=== PATIENT | male | born 1960 | race Hispanic/Latino ===

== ENCOUNTER 2020-04-16 16:11 | Inpatient (IN) | payer BC, SELFPAY ==
[2020-04-16] VITALS (20 sets, daily range): BP systolic 160–179; BP diastolic 82–94; PULSE 73–82; RESP 16–18; TEMP 37–37.2; O2SAT 93–99; BMI 29.0
--- NOTE | ~2020-04-16 | CT_ITS ---
EXAMINATION: CT abdomen pelvis wo con DATE: 04/16/2020 18:36 INDICATION: Abdominal pain. Pancreatitis. TECHNIQUE: Computed tomography (CT) of the abdomen and pelvis was performed without intravenous contr ast. Automated exposure control and iterative reconstruction technique were employed. Exam dose: 480 .97 mGy-cm total exam DLP. COMPARISON: None. FINDINGS: There is bibasilar lower lobe atelectasis. There is atelectasis at the base of the lingula. Normal he art size. No pericardial or pleural effusion. Diffuse hepatic steatosis. No hepatic, splenic or pancreatic space-occupying mass lesion is evident. There is high density bile within the gallbladder. No gallbladder wall thickening or pericholecystic fluid or stranding. There is peripancreatic fat stranding involving the body and tail of the pancreas, consistent with cl inical diagnosis of pancreatitis. There is associated thickening of the left anterior pararenal fasci a. No renal mass lesion. No urinary tract calculus or hydroureteronephrosis. The urinary bladder is unre markable. There is prostate enlargement and calcification. No intraluminal mass lesion of the urinary bladder i s evident. Normal caliber of the abdominal aorta. No intraperitoneal or retroperitoneal or pelvic mass lesion or adenopathy or ascites. Normal appendix. There is mild colonic diverticulosis. No CT evidence of diverticulitis. No bowel obstruction, pneumat osis or intraperitoneal free air. There is a fat-containing umbilical hernia. There is moderately prominent degenerative disc disease at L5-S1. No suspicious osteolytic or osteoblastic lesions are noted. IMPRESSION: Diffuse hepatic steatosis Mild pancreatitis Prostate enlargement and calcification Mild colonic diverticulosis Reviewed, dictated and finalized at [facility]. Reviewed, dictated and finalized at [facility]. UNICATIONS EQUIPMENT OPERATOR
--- NOTE | ~2020-04-16 | US_ITS ---
EXAMINATION: US right upper quadrant DATE: 04/17/2020 14:30 INDICATION: Acute pancreatitis. Abnormal liver function tests. TECHNIQUE: Multiple grayscale and Doppler ultrasound images of the abdomen were obtained. COMPARISON: CT abdomen and pelvis 04/16/2020 FINDINGS: The visualized portions of the head of the pancreas is normal. There is diffuse hepatic sushila atosis. There is normal flow in main portal vein. The gallbladder is normal in size. No gallstones or gallbladder wall thickening. There was no sonographic Cabral sign. The common duct is normal and chepe sures 3 mm. The spleen is normal in size. IMPRESSION: 1. Diffuse hepatic steatosis. Reviewed, dictated and finalized at [facility]. OP ADMIN
[2020-04-16 16:51] LABS: Basophils Percent Auto 0.3 % (0.2-1.2); Eosinophils Percent Auto 0.3 % (0-4.4); Hematocrit 40.7 % (42.0-52.0); Hemoglobin 14.7 g/dL (14.0-18.0); Immature Granulocyte Absolute 0.08 K/mm3 (0.00-0.031); Immature Granulocyte Percent A 0.5 % (0-0.5); Lymphocytes Absolute Auto 1.39 K/mm3 (0.9-3.2); Lymphocytes Percent Auto 8.8 % (18.3-44.2); Mean Corpuscular HGB Conc 36.1 g/dl (32-36); Mean Corpuscular Hemoglobin 32.7 pg (26-34); Mean Corpuscular Volume 90.4 fl (80-100); Mean Platelet Volume 10.2 fl (7.4-10.4); Monocytes Percent Auto 6.6 % (2.6-8.5); Neutrophils Absolute Auto 13.3 K/mm3 (1.3-6.7); Neutrophils Percent Auto 83.5 % (45.5-73.1); Platelet Count Result 234 k/mm3 (150-375); Red Cell Distribution Width 11.8 % (11.5-14.5); White Blood Count 15.9 K/mm3 (4.5-10.0)
[2020-04-16 17:01] LABS: Add Urine Microscopic? YES; Appearance Urine Clear (Clear); Bilirubin Urine Negative (Negative); Blood Urine Negative (Negative); Color Urine Yellow (Yellow); Glucose Urine UA Negative (Negative); Ketones Urine Negative (Negative); Leukocyte Esterase Ur Negative LEU/UL (Negative); Mucus Urine Rare /lpf; Nitrate Urine Negative (Negative); Protein Urine 1+ mg/dL (Negative); RBC Urine 0-2 /hpf (0-2); Specific Grav Ur 1.021 (1.001-1.035); Squamous Epithelial Cell Urine Rare /hpf (Few); Urobilinogen Urine Negative mg/dL (<2.0); WBC Urine 0-3 /hpf
[2020-04-16 17:04] LABS: Alanine Aminotransferase 39 U/L (4-50); Albumin Level 4.2 g/dL (3.5-5.1); Alkaline Phosphatase 101 U/L (38-126); Anion Gap 9 mmol/L (8-16); Aspartate Amino Transferase 40 U/L (17-59); Bilirubin,Total 0.9 mg/dL (0.2-1.3); Blood Urea Nitrogen 9 mg/dL (9-20); Calcium 9.2 mg/dL (8.4-10.2); Carbon Dioxide 25 mmol/L (22-30); Chloride 100 mmol/L (98-107); Estimated CRCL calculation 83 ml/min; Estimated Glomerular Filt Rate > 60; Glucose 110 mg/dL (75-110); Sodium 134 mmol/L (137-145)
[2020-04-16 17:17] LABS: Lipase 7680 U/L (23-300)
[2020-04-16] MEDS: FAMOTIDINE 20 MG/2 ML VIAL IV PUSH ×2 (17:42→23:27)
[2020-04-16] MEDS: ONDANSETRON INJ 4 MG/2 ML VIAL IV PUSH ×2 (17:42→21:52)
[2020-04-16] MEDS: SODIUM CHLORIDE 0.9% IV 1,000 ML 999 ML IV CONT (17:42)
[2020-04-16] MEDS: HYDROmorphone HCL INJ (*CRX) 1 MG/ML SYR IV PUSH (17:42)
--- NOTE | 2020-04-16 19:19 | PC.NURSE ---
PT REPORT TO BERTIN GRAFF AT THIS TIME.
--- NOTE | 2020-04-16 20:06 | ED.ABDPAIN ---
HPI - Abdominal Pain General Chief Complaint: Abdominal Pain Stated Complaint: abd pain since yest/seen at [facility] today Time Seen by Provider: 04/16/20 17:23 History of Present Illness HPI narrative: Patient is a 59-year-old gentleman who presents to emergency department with chief complaint of abdominal pain. The patient reports he has prior history of pancreatitis and states that he was seen at [facility] and diagnosed with constipation earlier today the patient reports this feels similar to whenever he has had episodes of pancreatitis in the past patient reports that he occasionally drinks alcohol. The patient denies history of gallbladder disease. Related Data Home Medications Medication Instructions Recorded Confirmed tramadol 50 mg PO Q4H PRN 04/16/20 Allergies Allergy/AdvReac Type Severity Reaction Status Date / Time No Known Allergies Allergy Unknown Verified 04/16/20 16:37 Review of Systems Review of Systems: Narrative: CONSTITUTIONAL: Denies fever, chills, or sweats. EYES: Denies visual changes, redness, or discharge. ENT: Denies rhinorrhea, congestion, sore throat, or otalgia. CARDIOVASCULAR: Denies chest pain, palpitations, or edema. RESPIRATORY: Denies cough or dyspnea. GASTROINTESTINAL: Denies abdominal pain, nausea, vomiting, or diarrhea. GENITOURINARY: Denies dysuria or hematuria. SKIN: Denies rash or itching. MUSCULOSKELETAL: Denies back pain, joint pain, or myalgia. NEUROLOGIC: Denies headache, numbness, or weakness. PSYCHIATRIC: Denies anxiety or depression. PMFSH Social History Social History Gender identity (if verbalized by the patient): Male Comments Pancreatitis Occasional alcohol consumption Exam Narrative: Exam Narrative: GENERAL: Well-appearing, well-nourished, and in no acute distress. HEAD: Normocephalic, atraumatic. EYES: PERRLA and EOMI. ENT: Nares clear, no rhinorrhea or epistaxis. Mucous membranes moist. NECK: Supple. CHEST: Clear to auscultation. No respiratory distress. HEART: Regular rate and rhythm. No murmur heard. Normal peripheral pulses. ABDOMEN: Soft, clear to palpation in the epigastric region, nondistended, normal active bowel sounds. EXTREMITIES: Normal range of motion. No edema. SKIN: Warm, dry, no rash. NEURO: No focal deficits. Alert and oriented x3. PSYCH: Normal mood and affect. Course Course Emergency Course: CT scan shows evidence of mild pancreatitis lipase is in the 7000 range. The patient's pain was controlled he was hydrated case was discussed with the hospitalist and the patient will be admitted to the hospital Vital Signs Vital signs: Vital Signs Temperature 37.2 C 04/16/20 16:33 Pulse Rate 76 04/16/20 16:33 Respiratory Rate 18 04/16/20 16:33 Blood Pressure 170/85 H 04/16/20 16:33 Pulse Oximetry 98 04/16/20 16:33 Temperature 37.2 C 04/16/20 16:33 Pulse Rate 73 04/16/20 17:33 Respiratory Rate 16 04/16/20 17:33 Blood Pressure 161/94 H 04/16/20 19:01 Pulse Oximetry 98 04/16/20 19:15 MDM - Abdominal Pain Lab Data Result diagrams: 04/16/20 16:45 04/16/20 16:45 Labs: Lab Results 04/16/20 04/16/20 04/16/20 Range/Units 16:45 16:45 16:50 WBC 15.9 H (4.5-10.0) K/mm3 RBC 4.50 L (4.6-6.20) M/mm3 Hgb 14.7 (14.0-18.0) g/dL Hct 40.7 L (42.0-52.0) % MCV 90.4 (80-100) fl MCH 32.7 (26-34) pg MCHC 36.1 H (32-36) g/dl RDW 11.8 (11.5-14.5) % Plt Count 234 (150-375) k/mm3 MPV 10.2 (7.4-10.4) fl Immature Gran % (Auto) 0.5 (0-0.5) % Neut % (Auto) 83.5 H (45.5-73.1) % Lymph % (Auto) 8.8 L (18.3-44.2) % [place] % (Auto) 6.6 (2.6-8.5) % Eos % (Auto) 0.3 (0-4.4) % Baso % (Auto) 0.3 (0.2-1.2) % Lymph # (Auto) 1.39 (0.9-3.2) K/mm3 [place] # (Auto) 1.0 H (0.1-0.6) K/mm3 Eos # (Auto) 0.0 (0-0.3) K/mm3 Baso # (Auto) 0.0 (0.0-0.1) K/mm3 Abs Immat Gran (auto) 0.08 H (0.00-0.031) K/mm3 Absolute N
--- NOTE | 2020-04-16 20:21 | PM.IMHP ---
H&P: HPI History of Present Illness Date/Time: 04/16/20 20:21 Chief complaint: Acute Pancreatitis Narrative: Ilya Ann is a 59 year old male Review of Systems Review of Systems: Narrative: Abdominal pain located to the epigastrium for the last 2 days or so, dry heaving. Constitutional: Comments: No fevers, no rigors, no chills. ENT: Comments: no ear pain, no throat pain, no nasal congestion or discharge. Cardiovascular: Comments: no chest pain, no leg swelling, no orthopnea, no pnd. Respiratory: Comments: no cough, no sputum production. Gastrointestinal: Comments: Epigastric pain for the last 2 days or so, dry heaving, no diarrhea, no constipation, no hematemesis or hematochezia or melena. Genitourinary: Comments: no pain or burning with urination. Musculoskeletal: Comments: no joint pain, no joint swelling. Integumentary/Breasts: Comments: no rashes. Neurologic: Comments: no sensory motor deficit Hematologic/Lymphatic: Comments: no LAP, no petechiae PMFSH Family History Family History (Updated 04/16/20 @ 21:51 by Wolfgang Fajardo RN) Father Cerebrovascular accident Social History Social History Smoking status: Never smoker Alcohol intake: current Substance use: current Substance use type: marijuana Gender identity (if verbalized by the patient): Male Spiritual care concerns: No Meds Home Medications and Allergies Allergies Allergy/AdvReac Type Severity Reaction Status Date / Time No Known Allergies Allergy Unknown Verified 04/16/20 16:37 Vital Signs Vital Signs - 24 hr 04/16/20 16:33 04/16/20 17:30 04/16/20 17:33 Temperature 98.9 F Pulse Rate 76 77 73 Respiratory Rate 18 16 16 Blood Pressure 170/85 H 167/83 H 167/83 H Pulse Oximetry 98 98 99 04/16/20 17:45 04/16/20 18:00 04/16/20 18:01 Temperature Pulse Rate Respiratory Rate Blood Pressure 161/91 H Pulse Oximetry 98 93 95 04/16/20 18:17 04/16/20 18:40 04/16/20 18:45 Temperature Pulse Rate Respiratory Rate Blood Pressure Pulse Oximetry 95 98 96 04/16/20 19:00 04/16/20 19:01 04/16/20 19:15 Temperature Pulse Rate Respiratory Rate Blood Pressure 161/94 H Pulse Oximetry 96 97 98 Exam Narrative: Exam Narrative: Well nourished, well developed, lying in bed. Const: General: cooperative, comfortable, well developed and alert Nutritional Appearance: average body habitus Orientation/consciousness: patient oriented x3 Limitations: no limitations HENMT: Head: normal to inspection and normocephalic Ears: hearing grossly normal bilaterally General nose exam: Normal external nose present Face and sinus: normal facial exam Eyes: General: appearance normal, both eyes and all related structures Conjunctivae: conjunctivae normal Sclera: sclerae normal Cornea: corneas normal Pupils: Equal, round and reactive pupils present EOM: EOMs intact bilaterally Neck: Neck: full ROM, no lymphadenopathy and no JVD Thyroid: thyroid normal Resp: Effort & Inspection: normal respiratory effort Auscultation: clear to auscultation bilaterally Cardio: Jugular venous distension: no JVD Rhythm: regular rhythm Heart sounds: S1 normal heart sound present and S2 normal heart sound present GI: Inspection: normal to inspection GI Palp: Yes abdominal tenderness, Yes Soft to palpation, Yes No hepatosplenomegaly present and Yes Other GI palpation findings present (Tenderness to palpation on the epigastric area, no rebound or guarding.) Percussion: Yes normal to percussion Auscultation: normal bowel sounds Skin: General skin exam: normal color Lesions: no lesions Rashes: no rashes Trauma: no lacerations or abrasions Wounds: no wounds Hair: normal Neuro: General: patient oriented x3 and CN's II-XI intact bilaterally Cranial nerves: Yes CN's II-XII intact bilaterally and Yes Equal, round and reactive pupils present Cognition (Neuro): normal cognition Speech: normal speech Gait exam
[2020-04-16] MEDS: MORPHINE SULFATE (*CRX) 2 MG/ML INJ IV PUSH (21:38)
--- NOTE | 2020-04-16 21:50 | ADMGEN ---
This patient, Ilya Ann, was admitted to [facility] Surg Room 316-01. Patient/family oriented to hospital policies and general routines including ID bracelet, bed and alarms, visiting hours, pain management, procedures, bathroom and other care routines, personal items, smoking policy, room service/diet, and visiting hours. Information on how to activate the Rapid Response Team has been discussed. Patient/Family are encouraged to report perceived risks to care and to ask questions if they do not understand what they are told or what they should do.
[2020-04-16] MEDS: HEPARIN SODIUM 5,000 UNITS/ML VIAL 5000 UNITS SUB-Q (21:52)
[2020-04-16] MEDS: LACTATED RINGERS 1,000 ML 100 ML IV CONT (23:27)
[2020-04-17] MEDS: MORPHINE SULFATE (*CRX) 2 MG/ML INJ IV PUSH ×5 (00:51→20:42)
[2020-04-17 05:29] VITALS: BP 152/78; PULSE 80; RESP 18; TEMP 36.8; O2SAT 94
[2020-04-17 06:57] LABS: Basophils Percent Auto 0.2 % (0.2-1.2); Eosinophils Percent Auto 0.1 % (0-4.4); Hematocrit 40.4 % (42.0-52.0); Hemoglobin 14.4 g/dL (14.0-18.0); Immature Granulocyte Absolute 0.11 K/mm3 (0.00-0.031); Immature Granulocyte Percent A 0.6 % (0-0.5); Lymphocytes Absolute Auto 1.51 K/mm3 (0.9-3.2); Lymphocytes Percent Auto 8.9 % (18.3-44.2); Mean Corpuscular HGB Conc 35.6 g/dl (32-36); Mean Corpuscular Hemoglobin 32.3 pg (26-34); Mean Corpuscular Volume 90.6 fl (80-100); Mean Platelet Volume 10.9 fl (7.4-10.4); Monocytes Absolute Auto 1.4 K/mm3 (0.1-0.6); Monocytes Percent Auto 8.4 % (2.6-8.5); Neutrophils Absolute Auto 13.8 K/mm3 (1.3-6.7); Neutrophils Percent Auto 81.8 % (45.5-73.1); Platelet Count Result 237 k/mm3 (150-375); Red Blood Count 4.46 M/mm3 (4.6-6.20); Red Cell Distribution Width 11.9 % (11.5-14.5); White Blood Count 16.9 K/mm3 (4.5-10.0)
[2020-04-17 07:43] LABS: Anion Gap 10 mmol/L (8-16); Blood Urea Nitrogen 6 mg/dL (9-20); Carbon Dioxide 23 mmol/L (22-30); Chloride 99 mmol/L (98-107); Estimated CRCL calculation 74 ml/min; Estimated Glomerular Filt Rate > 60; Glucose 101 mg/dL (75-110); Magnesium 1.7 mg/dL (1.6-2.3); Phosphorus 3.3 mg/dL (2.5-4.5); Potassium 3.7 mmol/L (3.4-5.0); Sodium 132 mmol/L (137-145)
[2020-04-17] MEDS: HEPARIN SODIUM 5,000 UNITS/ML VIAL 5000 UNITS SUB-Q ×2 (08:12→20:40)
[2020-04-17] MEDS: FAMOTIDINE 20 MG/2 ML VIAL IV PUSH ×2 (08:13→20:40)
[2020-04-17 09:53] LABS: Lipase 1795 U/L (23-300)
--- NOTE | 2020-04-17 11:08 | PM.IMPN ---
Progress Note: A&P Assessment and Plan (1) Acute pancreatitis: Code(s): K85.90 - Acute pancreatitis without necrosis or infection, unspecified Status: Acute Assessment and Plan: Presented with severe diffuse abdominal pain. CT/ a/p showed mild pancreatitis. Etiology unclear at this time. Patient reports occasional alcohol intake. Denies history of gall bladder disease. Lipase 7680 at presentation. Improved to 1795 today. Continue clear liquid diet. Advance as tolerated Check RUQ US Check triglycerides Continue IV fluid rehydration Antiemetics and analgesics as needed Monitor electrolytes and lipase daily (2) Leukocytosis: Code(s): D72.829 - Elevated white blood cell count, unspecified Status: Acute Assessment and Plan: White count 15.9 at admission, likely reactive secondary to pancreatitis. Slight increase today. No fevers or other signs or symptoms of infection. Continue gentle IV fluids and supportive care for pancreatitis as above Monitor CBC with diff daily (3) Hepatic steatosis: Code(s): K76.0 - Fatty (change of) liver, not elsewhere classified Status: Acute Assessment and Plan: CT a/p showed diffuse hepatic steatosis. LFTs are wnl. Dietary and lifestyle modifications recommended Outpatient follow up with PCP (4) Elevated blood pressure reading: Code(s): R03.0 - Elevated blood-pressure reading, without diagnosis of hypertension Status: Acute Assessment and Plan: Blood pressures are reviewed and have been elevated in the 150-170s systolic. May be secondary to pain. He denies a history of HTN. Monitor BP closely Consider addition of antihypertensive if remaining elevated Hydralazine as needed if systolic BP >170 Subjective Date/time seen: 04/17/20 11:08 Interval history: Date of service: 04/17/2020 Ilya Ann is a 59-year-old male who reports a history of one prior episode of pancreatitis 12 years ago who is seen in follow up for acute pancreatitis. He had onset of diffuse abdominal pain 2 days ago while at work. At this time, he reports 10/10 diffuse abdominal pain that he describes as both sharp and aching. It is just a bad pain. Denies radiation to the back. He felt a bit nauseous this morning but denies emesis. He has not eaten anything since yesterday. He has been having regular bowel movements. He denies urinary symptoms. He denies headaches or body aches. No shortness of breath, cough, chest pain, or palpitations. Review of Systems Review of Systems: All systems reviewed & are unremarkable except as noted in HPI and below Exam Narrative: Exam Narrative: Mr. Ann is a well-nourished, mildly ill-appearing 59-year-old male who is lying supine in bed. He is writhing and grimacing, but is in NARD. HR 80, BP 152/78, RR 18, T 98.3?, 94% on room air Neuro: awake, alert and oriented x4, speech clear, no focal neuro deficits noted HEENMT: normocephalic, atraumatic, EOMI, sclerae anicteric, moist oral mucosa, tongue midline, nares patent Neck: supple, no lymphadenopathy Respiratory: clear to auscultation bilaterally, nonlabored breathing Cardio: regular rate, regular rhythm with S1-S2 Abdomen: nondistended, normoactive bowel sounds, soft, diffusely tender to palpation with no rigidity or guarding, no rebound tenderness Extremities: no edema, erythema, cyanosis, clubbing, or tenderness to palpation, DP pulses 2+ bilaterally Skin: no rashes or lesions, warm and dry Psych: appropriate mood and affect, judgment and insight intact Objective Data Vital Signs Vital Signs: Vital Signs - 24 hr 04/16/20 16:33 04/16/20 17:30 04/16/20 17:33 Temperature 98.9 F Pulse Rate 76 77 73 Respiratory Rate 18 16 16 Blood Pressure 170/85 H 167/83 H 167/83 H Pulse Oximetry 98 98 99 04/16/20 17:45 04/16/20 18:00 04/16/20 18:01 Temperature Pulse Rate Respiratory Rate Blood Pressure 161/91 H
[2020-04-17 14:00] VITALS: BP 159/81; PULSE 83; RESP 16; TEMP 36.8; O2SAT 97
[2020-04-17] MEDS: LACTATED RINGERS 1,000 ML 100 ML IV CONT (14:32)
[2020-04-17 15:49] LABS: Triglycerides 514 mg/dL (<150)
[2020-04-17 22:00] VITALS: BP 157/84; PULSE 84; RESP 18; TEMP 36.9; O2SAT 97
[2020-04-18] MEDS: LACTATED RINGERS 1,000 ML 100 ML IV CONT ×2 (00:35→10:21)
[2020-04-18] MEDS: MORPHINE SULFATE (*CRX) 2 MG/ML INJ IV PUSH ×4 (04:48→20:11)
[2020-04-18 06:00] VITALS: BP 161/83; PULSE 84; RESP 18; TEMP 36.8; O2SAT 97
[2020-04-18 06:20] LABS: Hemoglobin 13.7 g/dL (14.0-18.0); Mean Corpuscular HGB Conc 36.1 g/dl (32-36); Mean Corpuscular Hemoglobin 33.1 pg (26-34); Mean Corpuscular Volume 91.8 fl (80-100); Mean Platelet Volume 10.8 fl (7.4-10.4); Platelet Count Result 219 k/mm3 (150-375); Red Blood Count 4.14 M/mm3 (4.6-6.20); Red Cell Distribution Width 12.1 % (11.5-14.5)
[2020-04-18 06:37] LABS: Alanine Aminotransferase 26 U/L (4-50); Albumin Level 3.7 g/dL (3.5-5.1); Alkaline Phosphatase 86 U/L (38-126); Anion Gap 10 mmol/L (8-16); Aspartate Amino Transferase 29 U/L (17-59); Blood Urea Nitrogen 9 mg/dL (9-20); Calcium 9.1 mg/dL (8.4-10.2); Carbon Dioxide 24 mmol/L (22-30); Chloride 96 mmol/L (98-107); Estimated CRCL calculation 74 ml/min; Estimated Glomerular Filt Rate > 60; Glucose 109 mg/dL (75-110); Lipase 548 U/L (23-300); Magnesium 1.9 mg/dL (1.6-2.3); Potassium 3.6 mmol/L (3.4-5.0); Sodium 130 mmol/L (137-145)
[2020-04-18] MEDS: FAMOTIDINE 20 MG/2 ML VIAL IV PUSH ×2 (09:07→20:10)
[2020-04-18] MEDS: HEPARIN SODIUM 5,000 UNITS/ML VIAL 5000 UNITS SUB-Q ×2 (09:07→20:10)
[2020-04-18 14:00] VITALS: BP 152/76; PULSE 91; RESP 18; TEMP 36.8; O2SAT 98
--- NOTE | 2020-04-18 15:27 | PM.IMPN ---
Progress Note: A&P Assessment and Plan (1) Acute pancreatitis: Code(s): K85.90 - Acute pancreatitis without necrosis or infection, unspecified Status: Acute Assessment and Plan: Presented with severe diffuse abdominal pain. CT/ a/p showed mild pancreatitis. Suspect idiopathic etiology. Triglycerides elevated at 514. Patient reports only occasional alcohol intake. No evidence of gallstones on RUQ US. Lipase is improving. Advance to full liquid diet IV fluids discontinued as he is tolerating oral intake Antiemetics and analgesics as needed Monitor electrolytes and lipase daily (2) Leukocytosis: Code(s): D72.829 - Elevated white blood cell count, unspecified Status: Acute Assessment and Plan: White count 15.9 at admission, likely reactive secondary to pancreatitis. Slight increase today. No fevers or other signs or symptoms of systemic infection. No Monitor CBC with diff daily Continue with supportive care treatment for pancreatitis as above. (3) Hepatic steatosis: Code(s): K76.0 - Fatty (change of) liver, not elsewhere classified Status: Acute Assessment and Plan: CT a/p showed diffuse hepatic steatosis. LFTs are wnl. Dietary and lifestyle modifications recommended Outpatient follow up with PCP Check lipid panel (4) Elevated blood pressure reading: Code(s): R03.0 - Elevated blood-pressure reading, without diagnosis of hypertension Status: Acute Assessment and Plan: Blood pressures are reviewed and have been elevated in the 150-170s systolic. May be secondary to pain. He denies a history of HTN. BP evaluated today and slightly elevated at 161/83. Monitor BP closely Consider addition of antihypertensive if remaining elevated Hydralazine as needed if systolic BP >170 Subjective Date/time seen: 04/18/20 15:27 Interval history: Date of service: 04/18/2020 Ilya Ann is a 59-year-old male who reports a history of one prior episode of pancreatitis 12 years ago who is seen in follow up for acute pancreatitis. His pain is improved today. He is currently endorsing 8/10 diffuse abdominal pain but is feeling much more comfortable. No radiation to back or flank. He still has not eaten anything but would like to try clear liquids. He is having a lot of gas and belching, and he thinks some of his pain is related to this. His last BM was several days ago. Denies fever, chills, nausea, vomiting, dizziness, lightheadedness. Denies urinary symptoms. No SOB or cough. Review of Systems Review of Systems: All systems reviewed & are unremarkable except as noted in HPI and below Exam Narrative: Exam Narrative: Mr. Ann is a well-nourished, mildly ill-appearing 59-year-old male who is lying supine in bed. He appears comfortable and is in NARD. HR 84, BP 161/83, R 18, T 98.3?, 97% on room air Neuro: awake, alert and oriented x4, speech clear, no focal neuro deficits noted HEENMT: normocephalic, atraumatic, EOMI, sclerae anicteric, moist oral mucosa, tongue midline, nares patent Neck: supple, no lymphadenopathy Respiratory: clear to auscultation bilaterally, nonlabored breathing Cardio: regular rate, regular rhythm with S1-S2 Abdomen: nondistended, normoactive bowel sounds, soft, mildly tender to palpation with no rigidity or guarding, no rebound tenderness Extremities: no edema, erythema, cyanosis, clubbing, or tenderness to palpation, DP pulses 2+ bilaterally Skin: no rashes or lesions, warm and dry Psych: appropriate mood and affect, judgment and insight intact Objective Data Vital Signs Vital Signs: Vital Signs - 24 hr 04/17/20 22:00 04/18/20 06:00 04/18/20 14:00 Temperature 98.5 F 98.3 F 98.2 F Pulse Rate 84 84 91 Respiratory Rate 18 18 18 Blood Pressure 157/84 H 161/83 H 152/76 H Pulse Oximetry 97 97 98 Intake/Output Intake/Output: Intake & Output 04/15/20 04/16/20 04/17/20 04/18/20 23:59 23:59 23:
[2020-04-18] MEDS: SIMETHICONE 80 MG TAB.CHEW PO ×2 (17:01→20:10)
[2020-04-18 20:40] VITALS: PULSE 78; RESP 16; O2SAT 94
[2020-04-18 22:00] VITALS: BP 152/89; PULSE 78; RESP 16; TEMP 37.1; O2SAT 94
[2020-04-19] MEDS: MORPHINE SULFATE (*CRX) 2 MG/ML INJ IV PUSH (04:54)
[2020-04-19 06:00] VITALS: BP 140/81; PULSE 77; RESP 16; TEMP 37; O2SAT 95
[2020-04-19 06:39] LABS: Hematocrit 38.4 % (42.0-52.0); Hemoglobin 13.6 g/dL (14.0-18.0); Mean Corpuscular HGB Conc 35.4 g/dl (32-36); Mean Corpuscular Hemoglobin 32.3 pg (26-34); Mean Corpuscular Volume 91.2 fl (80-100); Mean Platelet Volume 10.5 fl (7.4-10.4); Platelet Count Result 261 k/mm3 (150-375); Red Blood Count 4.21 M/mm3 (4.6-6.20); Red Cell Distribution Width 11.9 % (11.5-14.5); White Blood Count 14.8 K/mm3 (4.5-10.0)
[2020-04-19 06:54] LABS: Cholesterol 299 mg/dL (0-200); HDL Direct 37 mg/dL; Triglycerides 438 mg/dL (<150)
[2020-04-19 07:04] LABS: LDL Cholesterol Direct 142 mg/dL
[2020-04-19 07:05] LABS: Alanine Aminotransferase 28 U/L (4-50); Albumin Level 3.9 g/dL (3.5-5.1); Alkaline Phosphatase 94 U/L (38-126); Anion Gap 9 mmol/L (8-16); Aspartate Amino Transferase 32 U/L (17-59); Bilirubin,Total 0.8 mg/dL (0.2-1.3); Blood Urea Nitrogen 11 mg/dL (9-20); Carbon Dioxide 27 mmol/L (22-30); Chloride 98 mmol/L (98-107); Estimated CRCL calculation 67 ml/min; Estimated Glomerular Filt Rate > 60; Glucose 123 mg/dL (75-110); Lipase 465 U/L (23-300); Potassium 3.4 mmol/L (3.4-5.0); Sodium 134 mmol/L (137-145)
[2020-04-19] MEDS: HEPARIN SODIUM 5,000 UNITS/ML VIAL 5000 UNITS SUB-Q ×2 (08:25→20:31)
[2020-04-19] MEDS: FAMOTIDINE 20 MG/2 ML VIAL IV PUSH ×2 (08:27→20:26)
[2020-04-19] MEDS: MORPHINE SULFATE (*CRX) 2 MG/ML INJ 1 MG IV PUSH ×2 (08:27→17:18)
[2020-04-19] MEDS: SIMETHICONE 80 MG TAB.CHEW PO ×4 (08:28→20:31)
[2020-04-19 09:01] VITALS: O2SAT 92
[2020-04-19] MEDS: HYDROcodone/acetaminophen (*CRX) 5-325 MG TABLET 1 TAB PO ×2 (12:45→20:22)
[2020-04-19 14:00] VITALS: BP 139/85; PULSE 75; RESP 16; TEMP 36.7; O2SAT 100
--- NOTE | 2020-04-19 15:47 | PM.IMPN ---
Progress Note: A&P Assessment and Plan (1) Acute pancreatitis: Code(s): K85.90 - Acute pancreatitis without necrosis or infection, unspecified Status: Acute Assessment and Plan: Presented with severe diffuse abdominal pain. CT/ a/p showed mild pancreatitis. Suspect idiopathic etiology. Triglycerides are elevated but not markedly so. Patient reports only occasional alcohol intake. No evidence of gallstones on RUQ US. Lipase is improving. Continue full liquid diet. Patient endorsing worsened pain after meals. Advance diet slowly and as tolerated. IV fluids discontinued as he is tolerating oral intake Antiemetics and analgesics as needed Monitor electrolytes and lipase daily (2) Leukocytosis: Code(s): D72.829 - Elevated white blood cell count, unspecified Status: Acute Assessment and Plan: White count 15.9 at admission and increased up to 20.0, likely reactive secondary to pancreatitis. Slowly improving. No fevers or other signs or symptoms of systemic infection. Monitor CBC with diff daily Continue with supportive care treatment for pancreatitis as above. (3) Hepatic steatosis: Code(s): K76.0 - Fatty (change of) liver, not elsewhere classified Status: Acute Assessment and Plan: CT a/p showed diffuse hepatic steatosis. LFTs are wnl. Dietary and lifestyle modifications recommended Outpatient follow up with PCP Check lipid panel (4) Elevated blood pressure reading: Code(s): R03.0 - Elevated blood-pressure reading, without diagnosis of hypertension Status: Acute Assessment and Plan: Blood pressures are reviewed and had been elevated in the 150-170s systolic. May be secondary to pain. He denies a history of HTN. BP is trending downward as pain is improving. BP is 139/85 today. Monitor BP closely Consider addition of antihypertensive if remaining elevated Hydralazine as needed if systolic BP >170 (5) Hyperlipidemia: Code(s): E78.5 - Hyperlipidemia, unspecified Status: Acute Assessment and Plan: total cholesterol and triglycerides are elevated. LDL is borderline high. Initiate moderate intensity statin based on patient's intermediate ASCVD risk score of 14%. Start with 10 mg atorvastatin daily. May be uptitrated to 20 mg based on tolerability. LFTs reviewed and wnl. Subjective Date/time seen: 04/19/20 15:47 Interval history: Date of service: 04/19/2020 Ilya Ann is a 59-year-old male who reports a history of one prior episode of pancreatitis 12 years ago who is seen in follow up for acute pancreatitis. his pain is improving today. He is currently rating 6/10. This morning he was quite comfortable but did experience some pain after eating full liquid breakfast. He denies any nausea or vomiting. He is feeling more comfortable today. He has no additional concerns. Review of Systems Review of Systems: All systems reviewed & are unremarkable except as noted in HPI and below Exam Narrative: Exam Narrative: Mr. Ann is a well-nourished, mildly ill-appearing 59-year-old male who is lying supine in bed. He appears comfortable and is in NARD. HR 77, BP 140/81, RR 16, T 98.6?, 95% on room air Neuro: awake, alert and oriented x4, speech clear, no focal neuro deficits noted HEENMT: normocephalic, atraumatic, EOMI, sclerae anicteric, moist oral mucosa, tongue midline, nares patent Neck: supple, no lymphadenopathy Respiratory: clear to auscultation bilaterally, nonlabored breathing Cardio: regular rate, regular rhythm with S1-S2 Abdomen: nondistended, normoactive bowel sounds, soft, mildly tender to palpation of epigastric region with no rigidity or guarding, no rebound tenderness Extremities: no edema, erythema, cyanosis, clubbing, or tenderness to palpation, DP pulses 2+ bilaterally Skin: no rashes or lesions, warm and dry Psych: appropriate mood and affect, judgment and insight intact
[2020-04-19 22:00] VITALS: BP 143/72; PULSE 72; RESP 20; TEMP 37.2; O2SAT 99
[2020-04-20] MEDS: MORPHINE SULFATE (*CRX) 2 MG/ML INJ 1 MG IV PUSH (01:00)
[2020-04-20 06:00] VITALS: BP 142/82; PULSE 68; RESP 18; TEMP 36.8; O2SAT 97
[2020-04-20] MEDS: HYDROcodone/acetaminophen (*CRX) 5-325 MG TABLET 1 TAB PO (06:11)
[2020-04-20 07:43] LABS: Hematocrit 38.7 % (42.0-52.0); Hemoglobin 13.5 g/dL (14.0-18.0); Mean Corpuscular HGB Conc 34.9 g/dl (32-36); Mean Corpuscular Hemoglobin 32.5 pg (26-34); Mean Platelet Volume 9.9 fl (7.4-10.4); Platelet Count Result 288 k/mm3 (150-375); Red Blood Count 4.16 M/mm3 (4.6-6.20); Red Cell Distribution Width 11.9 % (11.5-14.5)
[2020-04-20 08:00] VITALS: PULSE 68; RESP 18; O2SAT 97
[2020-04-20 08:07] LABS: Anion Gap 6 mmol/L (8-16); Blood Urea Nitrogen 12 mg/dL (9-20); Carbon Dioxide 29 mmol/L (22-30); Chloride 99 mmol/L (98-107); Estimated CRCL calculation 67 ml/min; Estimated Glomerular Filt Rate > 60; Glucose 121 mg/dL (75-110); Lipase 239 U/L (23-300); Potassium 3.7 mmol/L (3.4-5.0); Sodium 134 mmol/L (137-145)
[2020-04-20] MEDS: FAMOTIDINE 20 MG/2 ML VIAL IV PUSH (08:10)
[2020-04-20] MEDS: ATORVASTATIN 10 MG TABLET PO (08:10)
[2020-04-20] MEDS: HEPARIN SODIUM 5,000 UNITS/ML VIAL 5000 UNITS SUB-Q (08:10)
[2020-04-20 14:00] VITALS: BP 141/73; PULSE 75; RESP 18; TEMP 36.5; O2SAT 94
--- NOTE | 2020-04-20 16:53 | PM.DS ---
DS: Admitting Diagnosis Admitting Diagnosis Admitting Diagnosis: Acute Pancreatitis DS: Discharge Diagnosis Discharge Diagnosis (1) Acute pancreatitis: Code(s): K85.90 - Acute pancreatitis without necrosis or infection, unspecified Status: Acute Assessment and Plan: Presented with severe diffuse abdominal pain. CT/ a/p showed mild pancreatitis. Suspect idiopathic etiology. Triglycerides are elevated but not markedly so. Patient reports only occasional alcohol intake. No evidence of gallstones on RUQ US. He was made NPO and hydrated with IV fluids. Lipase normalized. Diet was advanced and he was able to tolerate a low fat diet which he will continue. His pain improved. He had no nausea or vomiting. (2) Leukocytosis: Code(s): D72.829 - Elevated white blood cell count, unspecified Status: Acute Assessment and Plan: Resolved. White count 15.9 at admission and increased up to 20.0. This was reactive secondary to pancreatitis. No fevers or other signs or symptoms of systemic infection. White count normalized and was 9.0 at time of discharge. (3) Hepatic steatosis: Code(s): K76.0 - Fatty (change of) liver, not elsewhere classified Status: Acute Assessment and Plan: CT a/p showed diffuse hepatic steatosis, seen again on RUQ US. LFTs wnl. Dietary and lifestyle modifications recommended. He was referred to production corrugator PCP for further monitoring as an outpatient. (4) Elevated blood pressure reading: Code(s): R03.0 - Elevated blood-pressure reading, without diagnosis of hypertension Status: Acute Assessment and Plan: Blood pressures reviewed closely and had been elevated in the 150-170s systolic initially, likely elevated secondary to pain. He denies a history of HTN. BP trended downward with improvement in pain and was in 130-140s prior to discharge. I will defer initiating an anithypertensive at this time. I recommended patient monitor BP at home 3 times per week and record for review by PCP. Discussed parameters to call if BP is elevated. (5) Hyperlipidemia: Code(s): E78.5 - Hyperlipidemia, unspecified Status: Acute Assessment and Plan: Total cholesterol and triglycerides are elevated. LDL is borderline high. Moderate intensity statin initiated based on patient's intermediate ASCVD risk score of 14%. Started with 10 mg atorvastatin daily. May be uptitrated to 20 mg based on tolerability per PCP. LFTs reviewed and wnl. DS: Summary Hospital Course Reason for hospitalization: acute pancreatitis Hospital Course: date of admission: 04/16/2020 date of discharge: 04/20/2020 Ilya Ann is a 59-year-old male who is not current with routine health screening and reports no significant past medical history with the exception of one prior episode of pancreatitis 12 years ago presented to the emergency department on 04/16/2020 with complaints of abdominal pain. He had previously been evaluated at another facility earlier that day and diagnosed with abdominal pain. at presentation, BP elevated with additional vital signs stable, he was afebrile, white count elevated, electrolytes stable, LFTs within normal limits, lipase elevated at 7680, and CT abdomen/pelvis showed diffuse hepatic steatosis and mild pancreatitis. He was admitted to the hospitalist service for further evaluation and management. Please see above for further details. He was treated for acute idiopathic pancreatitis. His lipase normalized. His diet was advanced and he was able to tolerate low-fat diet without significant pain. He will need to continue a low-fat diet and follow-up with the on-call primary care physician for hospital follow-up. Given his overall improvement, he was determined to no longer require inpatient care was felt to be stable for discharge. Patient was agreeable with plan and anxious to return home. We discussed worrisome signs and symptoms for which to retur
[2020-04-20 17:17] VITALS: TEMP 36.5
[2020-04-20] MEDS: ACETAMINOPHEN 325 MG TABLET 650 MG PO (17:17)
--- NOTE | 2020-04-20 18:16 | PC.NURSE ---
saline lock discontinued with cannula intact. patient tolerated well. gauze dressing applied.
== END 2020-04-20 18:18 | disposition home or self-care (01) | DRG 282 ==
LOC: ANHED 20:10 → ANH3MEDSUR 04-17 08:36
PROVIDERS: Admitting Provider Internal Medicine; Emergency Provider Emergency Medicine; Visit Provider Physician Assistant
DX: K85.00 Idiopathic acute pancreatitis without necrosis or infection (principal); D72.829 Elevated white blood cell count, unspecified; K76.0 Fatty (change of) liver, not elsewhere classified; R03.0 Elevated blood-pressure reading, without diagnosis of hypertension; E78.5 Hyperlipidemia, unspecified; F10.20 Alcohol dependence, uncomplicated
CPT/HCPCS: 36415; 74176; 76705; 80048; 80053; 80061; 81001; 83036; 83690; 83735; 84100; 84478; 85025; 85027; 96361; 96374; 96375; 99285; A9270; J1170; J1644; J2270; J2405; J7030; J7120

== ENCOUNTER 2021-06-01 17:20 | Inpatient (IN) | payer BC, SELFPAY ==
--- NOTE | ~2021-06-01 | CT_ITS ---
EXAMINATION: CT abdomen pelvis w con DATE: 06/02/2021 01:54 INDICATION: Left abdominal pain. Nausea. TECHNIQUE: Computed tomography (CT) of the abdomen and pelvis was performed with 100 mL Omnipaque 350 intravenous contrast. Automated exposure control and iterative reconstruction technique were employe d. The dose-length product was 602.16 mGy-cm. COMPARISON: CT abdomen and pelvis 04/16/2020 FINDINGS: The visualized portions of the lung bases demonstrate mild atelectasis. No pleural effusion . The heart size is normal. No pericardial effusion. There is diffuse hepatic steatosis with focal sp aring in the gallbladder fossa. There is a chronic 16 mm hyperenhancing mass in right hepatic lobe wi th surrounding sparing of steatosis, likely a hemangioma or focal nodular hyperplasia. The gallbladde r, spleen, adrenal glands, and right kidney are normal. There are cysts in left kidney measuring up t o 6 mm. There is fat stranding around the tail of the pancreas, consistent with acute interstitial pa ncreatitis. There is an umbilical hernia containing fat. There is diverticulosis of the colon without evidence of diverticulitis. The appendix is normal. There are no pathologically enlarged lymph nodes . There is no free intraperitoneal fluid. There is severe lower lumbar spondylosis. There is mild chr onic anterior wedging of multiple lower thoracic vertebral bodies. IMPRESSION: 1. Acute interstitial pancreatitis. Reviewed, dictated and finalized at location B. SERV[employer]CH[employer]
[2021-06-01 17:26] VITALS: BP 174/100; PULSE 67; RESP 20; TEMP 36.9; O2SAT 96
[2021-06-01 19:20] VITALS: BP 173/84; PULSE 63; TEMP 37.2; O2SAT 97
[2021-06-02] VITALS (11 sets, daily range): BP systolic 120–165; BP diastolic 64–95; PULSE 63–72; RESP 13–21; TEMP 36.3–36.9; O2SAT 94–99; BMI 32.1
--- NOTE | 2021-06-02 01:08 | ED.ABDPAIN ---
HPI - Abdominal Pain General Chief Complaint: Abdominal Pain Stated Complaint: abd pain Time Seen by Provider: 06/02/21 01:06 Source: RN notes reviewed History of Present Illness HPI narrative: Patient presents emergency room from home for abdominal pain. Patient states abdominal pain began early this afternoon the pain is located in the left upper abdomen and radiates into the epigastric region described as sharp and stabbing. Associated nausea and vomiting. States that nausea is improved at this time. He states he took a Tylenol at home approximately 6 hours ago with minimal relief denies any fevers or chills, chest pain shortness of breath diarrhea or any other symptoms. States he had a history of pancreatitis proximally 1 year ago and this feels similar. That time pancreatitis was due to alcohol use and states he has not drank now for the past 1 year Related Data Home Medications Medication Instructions Recorded Confirmed No Home Medications 06/02/21 06/02/21 Allergies Allergy/AdvReac Type Severity Reaction Status Date / Time No Known Allergies Allergy Unknown Verified 06/02/21 01:24 Review of Systems Review of Systems: Gen.: Denies fevers or chills ENT: Denies congestion Respiratory: Denies shortness of breath or cough CV: Denies chest pain or palpitations GI: See HPI denies burning, urgency, frequency or hematuria Musculoskeletal: Denies back pain or muscle pain Neuro: Denies numbness, tingling, weakness or focal weakness Skin: Denies rash Except as documented, all other systems reviewed and negative [facility] Past Medical History Medical History (Updated 06/02/21 @ 03:16 by Reed Bertrand DO) Acute pancreatitis Hyperlipidemia Family History Family History (Updated 04/16/20 @ 21:51 by Wolfgang Fajardo RN) Father Cerebrovascular accident Social History Social History (Updated 06/02/21 @ 01:10 by Reed Bertrand DO) Smoking status: Current every day smoker Alcohol intake: current Substance use: current Substance use type: marijuana Gender identity (if verbalized by the patient): Male Spiritual care concerns: No Exam Narrative: APPEARANCE: No acute distress, nontoxic, resting in bed HEENT: Normocephalic, atraumatic, OMM RESPIRATORY: No respiratory distress, clear to auscultation bilaterally with no rhonchi wheezing or rales CARDIOVASCULAR: RRR s murmur ABDOMINAL: Soft nondistended tender palpation epigastric, left upper quadrant and right upper quadrant no tenderness in right lower quadrant left lower quadrant no rebound or guarding MUSCULOSKELETAl: Moves all extremities. No clubbing, cyanosis or edema. NEURO: Awake and alert. Following commands, speech normal, no focal deficits SKIN:: Warm, dry. Normal Color PSYCHIATRIC: Normal affect/mood Course Course Emergency Course: Patient was initially seen in triage room secondary to [facility] being at peak census. Discussed with Dr. Hair presentation work-up agrees with admission at this time Discussed with patient and family results of workup and diagnosis. Discussed need for admission. Patient and family understand and agree to current treatment plan Vital Signs Vital signs: Vital Signs Temperature 98.5 F 06/01/21 17:26 Pulse Rate 67 06/01/21 17:26 Respiratory Rate 20 06/01/21 17:26 Blood Pressure 174/100 H 06/01/21 17:26 Pulse Oximetry 96 06/01/21 17:26 Temperature 98.9 F 06/01/21 19:20 Pulse Rate 67 06/02/21 02:16 Respiratory Rate 18 06/02/21 02:16 Blood Pressure 164/90 H 06/02/21 02:16 Pulse Oximetry 97 06/02/21 02:16 MDM - Abdominal Pain Lab Data Result diagrams: 06/02/21 01:12 06/02/21 01:12 Labs: Lab Results 06/02/21 06/02/21 06/02/21 Range/Units 01:12 01:12 01:12 WBC 11.5 H (4.5-10.0) K/mm3 RBC 4.53 L (4.6-6.20) M/mm3 Hgb 14.5 (14.0-18.0) g/dL Hct 41.3 L (42.0-52.0) % MCV 91.2 (80-100) fl MCH 32.0
[2021-06-02 01:19] LABS: Basophils Absolute Auto 0.1 K/mm3 (0.0-0.1); Basophils Percent Auto 0.5 % (0.2-1.2); Eosinophils Absolute Auto 0.2 K/mm3 (0-0.3); Eosinophils Percent Auto 1.9 % (0-4.4); Hematocrit 41.3 % (42.0-52.0); Hemoglobin 14.5 g/dL (14.0-18.0); Immature Granulocyte Absolute 0.06 K/mm3 (0.00-0.031); Immature Granulocyte Percent A 0.5 % (0-0.5); Lymphocytes Absolute Auto 2.68 K/mm3 (0.9-3.2); Lymphocytes Percent Auto 23.2 % (18.3-44.2); Mean Corpuscular HGB Conc 35.1 g/dl (32-36); Mean Corpuscular Volume 91.2 fl (80-100); Mean Platelet Volume 10.3 fl (7.4-10.4); Monocytes Absolute Auto 0.9 K/mm3 (0.1-0.6); Monocytes Percent Auto 7.6 % (2.6-8.5); Neutrophils Absolute Auto 7.6 K/mm3 (1.3-6.7); Neutrophils Percent Auto 66.3 % (45.5-73.1); Platelet Count Result 207 k/mm3 (150-375); Red Blood Count 4.53 M/mm3 (4.6-6.20); Red Cell Distribution Width 12.5 % (11.5-14.5); White Blood Count 11.5 K/mm3 (4.5-10.0)
[2021-06-02 01:34] LABS: Alanine Aminotransferase 61 U/L (4-50); Albumin Level 4.4 g/dL (3.5-5.1); Alkaline Phosphatase 88 U/L (38-126); Anion Gap 4 mmol/L (8-16); Aspartate Amino Transferase 51 U/L (17-59); Bilirubin,Total 0.6 mg/dL (0.2-1.3); Blood Urea Nitrogen 14 mg/dL (9-20); Calcium 8.8 mg/dL (8.4-10.2); Carbon Dioxide 24 mmol/L (22-30); Chloride 105 mmol/L (98-107); Estimated CRCL calculation 96 ml/min; Estimated Glomerular Filt Rate > 60; Glucose 103 mg/dL (65-110); Lipase 1090 U/L (23-300); Potassium 4.1 mmol/L (3.4-5.0); Sodium 133 mmol/L (137-145)
--- NOTE | 2021-06-02 01:39 | PC.NURSE ---
Pt to imaging at this time.
[2021-06-02 01:49] LABS: Add Urine Microscopic? NO; Appearance Urine Clear (Clear); Bilirubin Urine Negative (Negative); Blood Urine Negative (Negative); Color Urine Yellow (Yellow); Glucose Urine UA Negative (Negative); Ketones Urine Negative (Negative); Leukocyte Esterase Ur Negative LEU/UL (Negative); Nitrate Urine Negative (Negative); Protein Urine Negative (Negative); Specific Grav Ur 1.017 (1.001-1.035); Urobilinogen Urine Negative mg/dL (<2.0)
[2021-06-02] MEDS: SODIUM CHLORIDE 0.9% IV 1,000 ML 999 ML IV CONT ×2 (02:02→02:09)
[2021-06-02] MEDS: MORPHINE SULFATE (*CRX) 4 MG/ML INJ IV PUSH ×3 (02:02→20:06)
[2021-06-02 02:13] LABS: Ethanol < 10 mg/dL (<10)
[2021-06-02] MEDS: SODIUM CHLORIDE 0.9% IV 1,000 ML 125 ML IV CONT ×3 (03:42→23:30)
--- NOTE | 2021-06-02 05:03 | ADMGEN ---
This patient, Ilya Ann, was admitted to 2 Medical Room 261-01. Patient/family oriented to hospital policies and general routines including ID bracelet, bed and alarms, visiting hours, pain management, procedures, bathroom and other care routines, personal items, smoking policy, room service/diet, and visiting hours. Information on how to activate the Rapid Response Team has been discussed. Patient/Family are encouraged to report perceived risks to care and to ask questions if they do not understand what they are told or what they should do.
--- NOTE | 2021-06-02 08:43 | PM.IMHP ---
H&P: HPI History of Present Illness Date/Time: 06/02/21 08:43 Chief Complaint: Abdominal pain Narrative: Ilya Ann is a 59 year old man with a past medical history significant for chronic pancreatitis and ETOH abuse. He presented to the ED from home with a chief complaint of abdominal pain. He tells me the pain started yesterday afternoon around 1500. He tells me the pain radiated to his epigastric region and at worse, he rated the pain 8/10. He reported associated symptoms including nausea and vomiting. He denied any worsening or alleviating factors. He took Tylenol without and relief. He tells me he had pancreatitis last year. He denied any alcohol use. During interview and exam his symptoms had improved significantly. He rated his pain 2/10. He denied any fever, chills, BARBER, dizziness, CP, SOB, palpitations. ED evaluation included and revealed: Lipase 1090; WBC 11.5; CT of A/P showed acute interstitial pancreatitis. IV Morphine, IV Zofran, and IVF bolus was given in the ED. The patient has been admitted to observation status for further treatment and evaluation. Review of Systems Review of Systems: All systems reviewed & are unremarkable except as noted in HPI and below PMFSH Past Medical History Medical History Acute pancreatitis Hyperlipidemia Family History Family History Father Cerebrovascular accident Social History Social History Smoking status: Never smoker Alcohol intake: former Substance use: current Substance use type: marijuana Last use: daily Gender identity (if verbalized by the patient): Male Spiritual care concerns: No Meds Home Medications and Allergies Home Medications Medication Instructions Recorded Confirmed Type No Home Medications 06/02/21 06/02/21 History Allergies Allergy/AdvReac Type Severity Reaction Status Date / Time No Known Allergies Allergy Unknown Verified 06/02/21 01:24 Vital Signs Vital Signs - 24 hr 06/01/21 17:26 06/01/21 19:20 06/02/21 01:05 Temperature 36.9 C 37.2 C Pulse Rate 67 63 63 Respiratory Rate 20 20 Blood Pressure 174/100 H 173/84 H 157/94 H Pulse Oximetry 96 97 97 06/02/21 02:00 06/02/21 02:16 06/02/21 02:31 Temperature Pulse Rate 66 67 66 Respiratory Rate 21 H 18 18 Blood Pressure 164/90 H 164/90 H 165/95 H Pulse Oximetry 97 97 97 06/02/21 02:46 06/02/21 03:16 06/02/21 03:31 Temperature Pulse Rate 66 65 63 Respiratory Rate 19 16 14 Blood Pressure 158/91 H 144/92 H 164/91 H Pulse Oximetry 98 99 97 06/02/21 04:01 06/02/21 06:00 Temperature 36.3 C L Pulse Rate 69 64 Respiratory Rate 13 18 Blood Pressure 163/91 H 151/78 H Pulse Oximetry 97 97 Exam Const: General: no acute distress, alert and awake Orientation/consciousness: patient oriented x3 HENMT: Head: normocephalic and atraumatic Ears: hearing grossly normal bilaterally and external ears normal Face and sinus: face symmetric Mouth: Yes Normal oral and palatal mucosa present Eyes: Pupils: Equal, round and reactive pupils present EOM: EOMs intact bilaterally Neck: Neck: full ROM, trachea midline and no JVD Resp: Effort & Inspection: normal respiratory effort Auscultation: clear to auscultation bilaterally Cardio: Jugular venous distension: no JVD Rate: regular rate Rhythm: regular rhythm Heart sounds: S1 normal heart sound present and S2 normal heart sound present GI: Inspection: normal to inspection GI Palp: Yes Soft to palpation Percussion: Yes normal to percussion Auscultation: normal bowel sounds : General: Yes no CVA tenderness Skin: General skin exam: normal color Rashes: no rashes Neuro: General: patient oriented x3 and no focal motor deficits Cranial nerves: Yes Equal, round and reactive pupils present Speech: normal speech
[2021-06-02] MEDS: ONDANSETRON INJ 4 MG/2 ML VIAL IV PUSH (20:06)
[2021-06-03 05:20] VITALS: BP 136/75; PULSE 68; RESP 14; TEMP 37
[2021-06-03] MEDS: MORPHINE SULFATE (*CRX) 4 MG/ML INJ IV PUSH (05:55)
[2021-06-03] MEDS: ONDANSETRON INJ 4 MG/2 ML VIAL IV PUSH (05:59)
[2021-06-03 06:03] LABS: Basophils Absolute Auto 0.1 K/mm3 (0.0-0.1); Basophils Percent Auto 0.7 % (0.2-1.2); Eosinophils Absolute Auto 0.2 K/mm3 (0-0.3); Eosinophils Percent Auto 1.8 % (0-4.4); Hematocrit 40.5 % (42.0-52.0); Hemoglobin 14.2 g/dL (14.0-18.0); Lymphocytes Absolute Auto 2.42 K/mm3 (0.9-3.2); Lymphocytes Percent Auto 23.4 % (18.3-44.2); Mean Corpuscular HGB Conc 35.1 g/dl (32-36); Mean Corpuscular Hemoglobin 31.8 pg (26-34); Mean Corpuscular Volume 90.6 fl (80-100); Mean Platelet Volume 10.5 fl (7.4-10.4); Monocytes Absolute Auto 0.9 K/mm3 (0.1-0.6); Monocytes Percent Auto 8.5 % (2.6-8.5); Neutrophils Absolute Auto 6.7 K/mm3 (1.3-6.7); Neutrophils Percent Auto 64.6 % (45.5-73.1); Platelet Count Result 198 k/mm3 (150-375); Red Blood Count 4.47 M/mm3 (4.6-6.20); Red Cell Distribution Width 12.3 % (11.5-14.5); White Blood Count 10.3 K/mm3 (4.5-10.0)
[2021-06-03 06:26] LABS: Alanine Aminotransferase 46 U/L (4-50); Alkaline Phosphatase 92 U/L (38-126); Anion Gap 8 mmol/L (8-16); Aspartate Amino Transferase 36 U/L (17-59); Bilirubin,Total 0.9 mg/dL (0.2-1.3); Blood Urea Nitrogen 11 mg/dL (9-20); Calcium 8.6 mg/dL (8.4-10.2); Carbon Dioxide 25 mmol/L (22-30); Chloride 103 mmol/L (98-107); Cholesterol 282 mg/dL (0-200); Estimated CRCL calculation 77 ml/min; Estimated Glomerular Filt Rate > 60; Glucose 84 mg/dL (65-110); HDL Direct 34 mg/dL; Lipase 84 U/L (23-300); Potassium 3.9 mmol/L (3.4-5.0); Sodium 136 mmol/L (137-145); Triglycerides 500 mg/dL (<150)
[2021-06-03 06:36] LABS: LDL Cholesterol Direct 89 mg/dL
[2021-06-03] MEDS: SODIUM CHLORIDE 0.9% IV 1,000 ML 125 ML IV CONT (07:59)
[2021-06-03] MEDS: ENOXAPARIN 40 MG/0.4 ML SYRINGE SUB-Q (07:59)
--- NOTE | 2021-06-03 11:33 | PM.IMPN ---
Progress Note: A&P Assessment and Plan (1) Acute pancreatitis: Code(s): K85.90 - Acute pancreatitis without necrosis or infection, unspecified Status: Acute Assessment and Plan: Continue with IVF Continue with antiemetics and analgesic NPO Repeat Lipase within normal limit Start clear liquid and advanced as tolerated (2) Hyperlipidemia: Code(s): E78.5 - Hyperlipidemia, unspecified Status: Acute Assessment and Plan: No home meds Check lipid panel with hypertriglyceridemia He will need therapy for this as this could be 1 of the contributing factor for acute pancreatitis. Will start fenofibrate when able to take (3) Elevated blood pressure reading: Code(s): R03.0 - Elevated blood-pressure reading, without diagnosis of hypertension Status: Acute Assessment and Plan: On admission BP elevated 170s/100s, now normal likely related to pain Could be related to pain Will add prn hydralazine Monitor Will need f/u to determine HTN Additional Plan Code status: FULL DVT Ppx: Loevnox Subjective Date/time seen: 06/03/21 11:33 Interval history: HPI:Ilya Ann is a 59 year old man with a past medical history significant for chronic pancreatitis and ETOH abuse. He presented to the ED from home with a chief complaint of abdominal pain. He tells me the pain started yesterday afternoon around 1500. He tells me the pain radiated to his epigastric region and at worse, he rated the pain 8/10. He reported associated symptoms including nausea and vomiting. He denied any worsening or alleviating factors. He took Tylenol without and relief. He tells me he had pancreatitis last year. He denied any alcohol use. During interview and exam his symptoms had improved significantly. He rated his pain 2/10. He denied any fever, chills, BARBER, dizziness, CP, SOB, palpitations. ED evaluation included and revealed: Lipase 1090; WBC 11.5; CT of A/P showed acute interstitial pancreatitis. IV Morphine, IV Zofran, and IVF bolus was given in the ED. The patient has been admitted to observation status for further treatment and evaluation. 06/03/2021 feeling better no nausea. Abdominal pain is better. Lipase is lower no alcohol intake since a year does use marijuana Review of Systems Review of Systems: All systems reviewed & are unremarkable except as noted in HPI and below Exam Narrative: GENERAL: The patient is well developed, not in acute distress HEENT: Nonicteric sclerae, PERRLA, EOMI. Oropharynx clear. Moist mucous membranes. Conjunctivae appear well perfused. CHEST: Chest wall is nontender. HEART: Regular rate and rhythm without murmur, rubs, or gallops LUNGS: Clear to auscultation bilaterally. no respiratory distress ABDOMEN: Soft, positive bowel sounds, non-tender, no organomegaly. SKIN: No rash, no excessive bruising, petechiae, or purpura. NEUROLOGIC: Cranial nerves II-XII intact, alert and oriented x 3, no gross motor deficits EXTREMITIES: no edema, cyanosis or clubbing Objective Data Vital Signs Vital Signs: Vital Signs - 24 hr 06/02/21 14:00 06/02/21 21:18 06/03/21 05:20 Temperature 98.0 F 98.4 F 98.6 F Pulse Rate 68 72 68 Respiratory Rate 18 14 14 Blood Pressure 139/78 120/64 136/75 Pulse Oximetry 94 95 Intake/Output Intake/Output: Intake & Output 05/31/21 06/01/21 06/02/21 06/03/21 23:59 23:59 23:59 23:59 Intake Total 4000 1500 Balance 4000 1500 Meds/Results Medications: Active Medications Generic Name Dose Route Start Last Admin Trade Name Freq PRN Reason Stop Dose Admin Enoxaparin Sodium 40 mg 06/03/21 09:00 06/03/21 07:59 Enoxaparin 40 Mg/0.4 Ml Syringe SUB-Q 40 mg DAILY LUCY Administration Hydralazine HCl 10 mg 06/02/21 10:30 Hydralazine Hcl 20 Mg/Ml Vial IV PUSH Q8H PRN Blood Pressure - High Sodium Chloride 1,000 mls @ 125 mls/hr 06/02/21 03:15 06/03/21 07:59 Normal Saline Iv IV CONT 125 mls/hr .Q8H LUCY Administ
--- NOTE | 2021-06-03 14:24 | PM.DS ---
DS: Admitting Diagnosis Discharge Date 06/03/2021 Admitting Diagnosis Abdominal pain DS: Discharge Diagnosis Discharge Diagnosis (1) Acute pancreatitis: Code(s): K85.90 - Acute pancreatitis without necrosis or infection, unspecified Status: Acute Assessment and Plan: Lipase was elevated along with the CT evidence of acute interstitial pancreatitis. I was started with IV fluid along with an Allis 6 and antiemetics. He was kept NPO. With improvement in the pain and nausea vomiting he was started on a diet which he tolerated well. Repeat lipase was within normal limit. No history of alcohol abuse the he had had alcohol induced pancreatitis in the past. He has not had any alcohol use since then. He does have hypertriglyceridemia which could be 1 of the other contributing factors. He will be started on fenofibrate for this hypertriglyceridemia. (2) Hyperlipidemia: Code(s): E78.5 - Hyperlipidemia, unspecified Status: Acute Assessment and Plan: His lipid panel from last year had hypertriglyceridemia as well he was placed on statin at the time but he is not taking that anymore. His lipid panel is primarily hypertriglyceridemia noted with LDL level of 89. Will start him on fenofibrate for his hypertriglyceridemia. He will need repeat lipid panel in 6-8 weeks for further monitoring and titration of his medication does. He does have PCP that he follows. (3) Elevated blood pressure reading: Code(s): R03.0 - Elevated blood-pressure reading, without diagnosis of hypertension Status: Acute Assessment and Plan: On admission BP elevated 170s/100s, now normal likely related to pain Could be related to pain Will add prn hydralazine Monitor DS: Summary Hospital Course Hospital Course: See above Time Spent with Patient Time attestation: Total time spent providing and/or coordinating discharge services: 40 minutes Exam Narrative: GENERAL: The patient is well developed, not in acute distress HEENT: Nonicteric sclerae, PERRLA, EOMI. Oropharynx clear. Moist mucous membranes. Conjunctivae appear well perfused. CHEST: Chest wall is nontender. HEART: Regular rate and rhythm without murmur, rubs, or gallops LUNGS: Clear to auscultation bilaterally. no respiratory distress ABDOMEN: Soft, positive bowel sounds, non-tender, no organomegaly. SKIN: No rash, no excessive bruising, petechiae, or purpura. NEUROLOGIC: Cranial nerves II-XII intact, alert and oriented x 3, no gross motor deficits EXTREMITIES: no edema, cyanosis or clubbing DS: Data Data Completed and Pending Labs on day of discharge: Labs from last 24 hours 06/03/21 06/03/21 05:50 05:50 WBC 10.3 H RBC 4.47 L Hgb 14.2 Hct 40.5 L MCV 90.6 MCH 31.8 MCHC 35.1 RDW 12.3 Plt Count 198 MPV 10.5 H Immature Gran % (Auto) 1.0 H Neut % (Auto) 64.6 Lymph % (Auto) 23.4 Dane % (Auto) 8.5 Eos % (Auto) 1.8 Baso % (Auto) 0.7 Lymph # (Auto) 2.42 Dane # (Auto) 0.9 H Eos # (Auto) 0.2 Baso # (Auto) 0.1 Abs Immat Gran (auto) 0.10 H Absolute Neuts (auto) 6.7 Absolute Nucleated RBC 0.0 Nucleated RBC % 0.0 Sodium 136 L Potassium 3.9 Chloride 103 Carbon Dioxide 25 Anion Gap 8 BUN 11 Creatinine 0.90 Estim Creat Clear Calc 77 Estimated GFR > 60 Glucose 84 Calcium 8.6 Total Bilirubin 0.9 AST 36 ALT 46 Alkaline Phosphatase 92 Total Protein 7.0 Albumin 4.0 Triglycerides 500 H Cholesterol 282 H LDL Cholesterol Direct 89 HDL Direct 34 Lipase 84 Imaging Radiologist's impression: ITS Impressions Abdomen/Pelvis CT 06/02/21 08:06 IMPRESSION: 1. Acute interstitial pancreatitis. Discharge Plan Discharge Attending physician on discharge: Alexander Stauffer Discharging Clinician: Alexander Stauffer Anticipated Discharge Date/Time: 06/03/21 14:06 Patient Disposition: Home, Self-Care Activity: as tolerated
== END 2021-06-03 15:44 | disposition home or self-care (01) | DRG 282 ==
LOC: ANHED 06-02 03:16 → ANH2MED 06-02 04:31
PROVIDERS: Admitting Provider Internal Medicine; Emergency Provider Emergency Medicine; PCP Registered Nurse; Visit Provider Internal Medicine
DX: K85.80 Other acute pancreatitis without necrosis or infection (principal); F10.10 Alcohol abuse, uncomplicated; R03.0 Elevated blood-pressure reading, without diagnosis of hypertension; E78.5 Hyperlipidemia, unspecified; F17.210 Nicotine dependence, cigarettes, uncomplicated
CPT/HCPCS: 36415; 74177; 80053; 80061; 80307; 81003; 83690; 85025; 96361; 96374; 99285; J1650; J2270; J2405; J7030; Q9967

== ENCOUNTER 2022-05-02 10:30 | Emergency (ER) | payer BC, SELFPAY ==
--- NOTE | 2022-05-02 10:52 | PC.NURSE ---
pt to rn utilization management um I am going to leave and come back.
== END 2022-05-02 11:25 | disposition left against medical advice (07) ==
LOC: ANHED 10:58
PROVIDERS: PCP Registered Nurse
DX: Z53.21 Procedure and treatment not carried out due to patient leaving prior to being seen by health care provider (principal)
CPT/HCPCS: 99199

== ENCOUNTER 2022-07-11 09:05 | Emergency (ER) | payer BC, SELFPAY ==
--- NOTE | ~2022-07-11 | CT_ITS ---
Noncontrast CT scan of the cervical spine Technique: Multiple contiguous axial [address] images of the cervical spine were obtained and rec onstructed in 2D sagittal and coronal planes on the acquisition scanner. Dose reduction technique was used on this scan by utilizing automated exposure control, adjustment of the mA and/or kV according to patient size. Clinical History: Pain Findings: No fractures or dislocations. Minimal scattered facet joint degenerative changes are prese nt. The intervertebral disc spaces are preserved. No prevertebral soft tissue swelling. Impression: No fracture or subluxation of the cervical spine. Reviewed, dictated and finalized at location . [employer] Impression: No fracture or subluxation of the cervical spine.
--- NOTE | ~2022-07-11 | CT_ITS ---
Non-contrast Head CT History: Head injury Technique: Axial non-contrast imaging of the brain was performed. Dose reduction technique was used on this scan by utilizing automated exposure control and iterative reconstruction technique. The dose -length product (DLP) was 605.33 mGy-cm. Findings: There is no evidence of intracranial hemorrhage, mass lesion, or acute infarct. Brain par enchyma appears normal. The ventricles and subarachnoid spaces are normal in size. The calvarium ap pears normal. The visualized paranasal sinuses and mastoid air cells are clear. Impression: No significant abnormality seen. Reviewed, dictated and finalized at [facility]. 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
--- NOTE | ~2022-07-11 | XR_ITS ---
EXAMINATION: XR shoulder LT min 2V DATE: 07/11/2022 09:56 INDICATION: Left shoulder pain. TECHNIQUE: 4 views of left shoulder were obtained. COMPARISON: None. FINDINGS: Bone alignment is normal. No fracture. There is mild osteoarthritis of glenohumeral joint a nd acromioclavicular joint. IMPRESSION: 1. Mild polyarticular osteoarthritis. Reviewed, dictated and finalized at location A. [employer] WORKER
--- NOTE | ~2022-07-11 | XR_ITS ---
EXAMINATION: XR shoulder RT min 2V DATE: 07/11/2022 09:56 INDICATION: Right shoulder pain. TECHNIQUE: 4 views of right shoulder were obtained. COMPARISON: None. FINDINGS: Bone alignment is normal. No fracture. The glenohumeral joint is normal. There is mild acro mioclavicular joint osteoarthritis. There are airspace opacities at right lung base that may be atele ctasis. IMPRESSION: 1. Mild right acromioclavicular joint osteoarthritis. Reviewed, dictated and finalized at location A. BURNER
[2022-07-11 09:17] VITALS: BP 149/91; PULSE 90; RESP 16; TEMP 36.7; O2SAT 95
--- NOTE | 2022-07-11 09:23 | ED.NECK ---
HPI - Neck Pain/Injury General Chief Complaint: Neck Pain/Injury Stated Complaint: neck pain, hurt on job a month ago Time Seen by Provider: 07/11/22 09:13 Source: patient Mode of arrival: ambulatory Limitations: no limitations History of Present Illness HPI Narrative: This is a 61-year-old male that presents to the emergency department for neck injury sustained about a month ago at work. Reports he had some heavy boards hit him in the head. He was evaluated at [facility] at that time. He is unsure what he had images of. Since he has been having lasting pain in his neck that is worse with movement. He also reports the pain is radiating into his shoulders. He has been taking the medications prescribed without relief. Denies visual changes, vomiting, numbness, or weakness Related Data Allergies Allergy/AdvReac Type Severity Reaction Status Date / Time No Known Allergies Allergy Unknown Verified 09/20/21 10:26 Review of Systems Review of Systems: CONSTITUTIONAL: Denies fever EYES: Denies visual changes GASTROINTESTINAL: Denies vomiting SKIN: Denies rash MUSCULOSKELETAL: Reports joint pain, and myalgia. NEUROLOGIC: Denies numbness, or weakness. All systems reviewed & are unremarkable except as noted in HPI and below PMFSH Past Medical History Medical History (Updated 07/11/22 @ 11:05 by Whitney Vallejo PA-C) Acute pancreatitis Hyperlipidemia Family History Family History (System 09/20/21 @ 10:26 by Hardy Jeffries) Father Cerebrovascular accident Social History Social History (Updated 07/11/22 @ 09:24 by Whitney Vallejo PA-C) Smoking status: Never smoker Alcohol intake: former Substance use: former Substance use type: marijuana Gender identity (if verbalized by the patient): Male Spiritual care concerns: No Exam Narrative: GENERAL: Well-appearing, well-nourished, and in no acute distress. HEAD: Normocephalic, atraumatic. EYES: EOMI. Right pupil is round and reactive to light. Left pupil is irregular and nonreactive which patient reports is chronic after an injury years ago ENT: Nares clear, no rhinorrhea or epistaxis. Mucous membranes moist. Oropharynx without tonsillar hypertrophy exudate or other lesions. Bilateral TMs pearly chambers non-bulging NECK: Supple. No adenopathy or masses. Tender to palpation of cervical paraspinal musculature CHEST: Clear to auscultation. No respiratory distress. No wheezes rales or rhonchi HEART: Regular rate and rhythm. No murmur heard. Normal peripheral pulses. EXTREMITIES: Normal range of motion. No edema. Strength equal in bilateral upper and lower extremities (5/5) SKIN: Warm, dry, no rash. NEURO: No focal deficits. Alert and oriented x3. PSYCH: Normal mood and affect Course Course Emergency Course: Patient resting comfortably. Updated on work-up. Agrees with plan of care Vital Signs Vital signs: Vital Signs Pulse Rate 90 07/11/22 09:17 Respiratory Rate 16 07/11/22 09:17 Blood Pressure 149/91 H 07/11/22 09:17 Pulse Oximetry 95 07/11/22 09:17 Oxygen Delivery Room Air 07/11/22 09:17 Pulse Rate 90 07/11/22 09:17 Respiratory Rate 16 07/11/22 09:17 Blood Pressure 149/91 H 07/11/22 09:17 Pulse Oximetry 95 07/11/22 09:17 Oxygen Delivery Room Air 07/11/22 09:17 MDM - Neck Pain/Injury MDM Narrative Medical decision making narrative: Patient presents to the emergency department with neck pain ongoing over the last month after an injury at work. Patient is neurovascularly intact. CT scan of his brain and cervical spine without acute findings. Also reporting bilateral shoulder pain. Bilateral shoulder x-rays show osteoarthritis. Patient given dose of Tylenol and Valium with improvement. Resting comfortably. Updated on work-up and agrees with plan of care. He was instructed to have follow-up with primary care provider. He was given warnings to return to the ER Differential Diagnosis Differential diagno
[2022-07-11] MEDS: ACETAMINOPHEN 500 MG TABLET 1000 MG PO (10:00)
[2022-07-11] MEDS: diazePAM INJ (*CRX) 10 MG/2 ML SYRINGE 5 MG IM (10:01)
[2022-07-11 11:50] VITALS: BP 130/89; PULSE 76; RESP 16; TEMP 36.6; O2SAT 95
== END 2022-07-11 11:53 | disposition home or self-care (01) ==
PROVIDERS: Emergency Provider Physician Assistant
DX: S16.1XXA Strain of muscle, fascia and tendon at neck level, initial encounter (principal); M19.012 Primary osteoarthritis, left shoulder; M19.011 Primary osteoarthritis, right shoulder; E78.5 Hyperlipidemia, unspecified; W20.8XXA Other cause of strike by thrown, projected or falling object, initial encounter
CPT/HCPCS: 70450; 72125; 73030; 96372; 99284; A9270; J3360

== ENCOUNTER 2023-02-10 02:36 | Day surgery (SDC) | payer OTHER, SELFPAY ==
[2023-01-25 13:58] VITALS: BMI 30.2
[2023-02-10] VITALS (7 sets, daily range): BP systolic 60–134; BP diastolic 32–78; PULSE 67–84; RESP 18–23; TEMP 36.4; O2SAT 94–96
[2023-02-10 11:19] LABS: Glucose Point of Care 79 mg/dl (65-105)
[2023-02-10] MEDS: LACTATED RINGERS 1,000 ML 150 ML IV CONT (11:41)
--- NOTE | 2023-02-10 11:49 | PM.HPGS ---
History of Present Illness History of Present Illness Consent: Risks, benefits, and alternatives have been discussed and questions answered. Patient agrees to proceed with procedure. Chief complaint: neoplasm screening Narrative: Ilya Ann is a 62 year old male Presents for screening colonoscopy. Patient's current weight appetite and bowel movements are normal. Patient denies abdominal pain. He has had no bleeding. Family history noncontributory. Patient does report recent diagnosis of inflammatory arthritis. Review of Systems Review of Systems: Review of systems noncontributory. [facility] Past Medical History Medical History (Updated 02/10/23 @ 11:52 by Hakan Wong MD) Acute pancreatitis Hyperlipidemia Family History Family History (System 09/20/21 @ 10:26 by Hardy Jeffries) Father Cerebrovascular accident Social History Social History (Updated 07/11/22 @ 09:24 by Whitney Vallejo PA-C) Smoking status: Never smoker Alcohol intake: never Substance use: former Substance use type: does not use Living arrangements: with family Gender identity (if verbalized by the patient): Male Spiritual care concerns: No Meds Home Medications and Allergies Home Medications Medication Instructions Recorded Confirmed Type mycophenolate mofetil 500 mg tablet 2 g PO POST-TRANSFUSION 01/25/23 01/25/23 History omeprazole 20 mg capsule,delayed 20 mg PO DAILY 01/25/23 01/25/23 History release prednisone 20 mg tablet 20 mg PO DAILY 01/25/23 01/25/23 History sulfamethoxazole 800 1 tablet PO DAILY 01/25/23 01/25/23 History mg-trimethoprim 160 mg tablet Allergies Allergy/AdvReac Type Severity Reaction Status Date / Time No Known Allergies Allergy Unknown Verified 02/10/23 11:35 Vital Signs Vital Signs - 24 hr 02/10/23 11:37 Temperature 97.6 F Pulse Rate 84 Respiratory Rate 18 Blood Pressure 128/77 Pulse Oximetry 96 Oxygen Delivery Room Air Exam Narrative: Physical exam reveals patient to be alert. Vital signs stable. HEENT exam is unremarkable. Patient is anicteric. Lungs are clear to auscultation and percussion. Heart is without murmur or extra sounds. Abdomen bowel sounds present soft nontender with no organomegaly. Digital external rectal exam normal. Assessment and Plan Assessment and plan (1) Encounter for screening colonoscopy: Code(s): Z12.11 - Encounter for screening for malignant neoplasm of colon Status: Acute Assessment and Plan: Patient presents today for screening colonoscopy. He appears to be at average risk for colon polyps. Further recommendations may be given after endoscopy.
--- NOTE | 2023-02-10 12:01 | WPDANESEPPF ---
Anes - Initial Pre Proc Eval Procedure: Operation Date: 02/10/23 13:15 Proposed Procedures p Screening Colonoscopy - Hakan Wong MD Date/Time: 02/10/23 12:01 Surgeon: Hkaan Wong MD Pre Op Diagnosis: neoplasm screening Patient Data Age: 62 Gender: M Height: 1.63 m Weight: 78 kg Last Vital Signs Temp 97.6 F 02/10/23 11:37 Pulse 84 02/10/23 11:37 Resp 18 02/10/23 11:37 BP 128/77 02/10/23 11:37 Pulse Ox 96 02/10/23 11:37 O2 Del Method Room Air 02/10/23 11:37 Allergies Allergy/AdvReac Type Severity Reaction Status Date / Time No Known Allergies Allergy Unknown Verified 02/10/23 11:35 Home Medications Medication Instructions Recorded Confirmed Type mycophenolate mofetil 500 mg tablet 2 g PO POST-TRANSFUSION 01/25/23 01/25/23 History omeprazole 20 mg capsule,delayed 20 mg PO DAILY 01/25/23 01/25/23 History release prednisone 20 mg tablet 20 mg PO DAILY 01/25/23 01/25/23 History sulfamethoxazole 800 1 tablet PO DAILY 01/25/23 01/25/23 History mg-trimethoprim 160 mg tablet Laboratory Tests 02/10/23 11:17 POC Capillary Glucose 79 mg/dl (65-105) Patient hx anesthesia problems: none Family hx anesthesia problems: none Results Review: All pre-operative results and documents have been reviewed as part of the pre-operative evaluation. REPLACED BY [facility] Past Medical History Medical History (Updated 02/10/23 @ 11:52 by Hakan Wong MD) Acute pancreatitis Hyperlipidemia Family History Family History (System 09/20/21 @ 10:26 by Hardy Jeffries) Father Cerebrovascular accident Social History Social History (Updated 07/11/22 @ 09:24 by Whitney Vallejo PA-C) Smoking status: Never smoker Alcohol intake: never Substance use: former Substance use type: does not use Living arrangements: with family Gender identity (if verbalized by the patient): Male Spiritual care concerns: No Anes - Eval Final PreProcedure Day of Procedure 02/10/23 12:01 Patient weight: normal Heart: regular rate and rhythm Lungs: clear to auscultation Airway: Mallampati scale class II Neurological: alert and oriented Last oral intake: >/= 8 hours ASA classification: II Emergent: no Anesthetic plan: proceed Anesthesia type and monitoring: general GIVS and standard monitoring Results Review: All pre-operative results and documents have been reviewed as part of the pre-operative evaluation. Informed Consent: The patient's anesthetic plan and its attendant risks and benefits were discussed with the patient/family/POA. Questions were solicited and answers provided to the satisfaction of the patient/family/POA.
--- NOTE | 2023-02-10 14:05 | SUR.PHASEII ---
1327 Pt blood pressure 61/32. Dr. Yap anesthesiologist notified. Phenylephrine given by Dr. Yap.
== END 2023-02-10 13:53 | disposition home or self-care (01) ==
PROVIDERS: PCP Physician Assistant; Visit Provider Internal Medicine Gastroenterology
PROC: 0DJD8ZZ Inspection of Lower Intestinal Tract, Via Natural or Artificial Opening Endoscopic (ICD-10-PCS; CPT 45378; principal; 2023-02-10 13:15)
DX: Z12.11 Encounter for screening for malignant neoplasm of colon (principal); K63.5 Polyp of colon; K64.8 Other hemorrhoids; M13.80 Other specified arthritis, unspecified site; Z79.620 Long term (current) use of immunosuppressive biologic
CPT/HCPCS: 45385; 82948; 88305; J2704; J7120

== ENCOUNTER 2023-10-17 16:27 | Outpatient (CLI) | payer OTHER, SELFPAY ==
--- NOTE | ~2023-10-17 | MR_ITS ---
MRI of the right shoulder Technique: Axial proton-density fat-sat images, coronal proton density fat-sat and T2 fat-sat images, and sagittal T1-weighted and T2 fat-sat images were acquired. Clinical History: Pain Findings: There is moderate AC joint degenerative change. Coracoclavicular, coracoacromial, and corac ohumeral ligaments appear intact. Supraspinatus and infraspinatus tendons demonstrate moderate tendinosis. Possible irregular partial t hickness tearing of the distal supraspinatus tendon anteriorly. No full-thickness tear evident. Subsc apularis tendon is intact. Tendon of the long head of the biceps is intact. Superior labral tear present. No definite anterior or posterior extension. There is chondromalacia the humeral head and glenoid. There is focal cystic change in the superior gl enoid inferior glenohumeral ligament is intact. There is minimal fluid in the subacromial/subdeltoid bursa. No muscle atrophy or edema evident. Impression: Rotator cuff tendinosis with possible irregular partial thickness tearing of the distal supraspinatus tendon anteriorly. No full-thickness tear evident. Superior labral tear. Moderate AC joint degenerative change. Mild glenohumeral joint degenerative change. Reviewed, dictated and finalized at [facility]. Impression: Rotator cuff tendinosis with possible irregular partial thickness tearing of th e distal supraspinatus tendon anteriorly. No full-thickness tear evident. Superior labral tear. Moderate AC joint degenerative change. Mild glenohumeral joint degenerative blade nge.
== END 2023-10-17 16:28 | disposition home or self-care (01) ==
LOC: ANHIMG 16:27
PROVIDERS: PCP Physician Assistant
DX: M54.2 Cervicalgia (principal); M19.011 Primary osteoarthritis, right shoulder
CPT/HCPCS: 73221